=== PATIENT | female | born 1945 | race Caucasian/White ===

== ENCOUNTER → 2016-09-12 | Outpatient (CLI) | payer OTHER, MEDICARE ==
[~2016-09-12] MED LIST: ADULT LOW DOSE81 MG OR; ALEVE220 MG PO; APAP650 OR; ASPIR 8181 MG PO; ASPIRIN325 PO; DIOVAN HCT 1601 EAC1 PO; EFFIENT10 MG PO; GLUCOPHAGE XR500 MG OR; HYDROCODONE-AP1 EAC6 PO; JANUMET 50-5001 EACH PO; LIPITOR10 MG PO; MICARDIS HCT 81 EAC1 OR; NORVASC10 MG OR; REVIEWED; ROBAXIN 750 MG750 M1 PO; ROBAXIN 750 MG750 MG PO; TOPROL XL50 MG PO
== END ==
LOC: RAD 01:02
DX: Z12.31 Encounter for screening mammogram for malignant neoplasm of breast (principal)

== ENCOUNTER → 2016-12-05 | Outpatient (CLI) | payer OTHER, MEDICARE ==
[~2016-12-05] VITALS: Ht 157.5 cm; Wt 58.5 kg
[~2016-12-05] MED LIST changes: +CENTRUM SILVER1 EAC4 PO; +JANUVIA100 MG PO; +PANTOPRAZOLE SO40 M1 PO
--- NOTE | ~2016-12-05 | P ---
[facility] [place] [address] PROCEDURE REPORT Name: MARIO JAMISON Room #: REG [facility]#: [id number] Admission: 12/05/16 Attend Phys: Morris Butt MD Discharge: Date of : 45 Report #: [id number] THIS REPORT FOR: //name// CC: Morris Kimbrough DATE OF SERVICE: 12/05/2016 BRIEF HISTORY: The patient is a 71-year-old woman for average risk screening colonoscopy. PREOPERATIVE DIAGNOSIS: Average risk screening colonoscopy. POSTOPERATIVE DIAGNOSES: 1. Diminutive polyp at 70 cm. 2. Moderate sigmoid diverticulosis coli. MEDICATIONS: Deep sedation with propofol per anesthesia. SPECIMEN: Polyp from 70 cm. ESTIMATED BLOOD LOSS: 3 mL. PROCEDURE: Colonoscopy to cecum and terminal ileum with biopsy. FINDINGS: Prior to propofol sedation, procedure of colonoscopy discussed with the patient as well as potential risks and its complications. She indicates she understands and desires to proceed. DESCRIPTION OF PROCEDURE: With the patient in left lateral decubitus position, digital examination was completed which revealed no abnormalities. Subsequently, the Uberpong video colonoscope was introduced into the rectum, advanced under direct vision to the cecum. Done with minimal difficulty. The cecum was identified by the ileocecal valve and appendiceal orifice. I was able to visualize the distal segment of terminal ileum, which was unremarkable. At that point, the scope was slowly withdrawn and careful circumferential views obtained including retroflexing the scope in the ascending colon. Upon slow withdrawal of the scope, the prep was noted to be excellent. Mucosa normal limits, normal vascular pattern, normal light reflex. As we withdrew the scope, no abnormalities were noted until we reached the proximal descending colon and at 70 cm, a diminutive polyp seen and removed by biopsy. Scope was further withdrawn and no additional polyps were seen. The mucosa throughout the remainder of the colon was normal. However, in the sigmoid colon, there was moderate sigmoid diverticular disease without endoscopic evidence of diverticulitis. Scope was withdrawn in the rectum and small hemorrhoid was [facility] [address] [place] [address] PROCEDURE REPORT Name: MARIO JAMISON Room #: REG [facility].#: [id number] Admission: 12/05/16 Attend Phys: Morris Butt MD Discharge: Date of : 45 Report #: [id number] seen. Scope was withdrawn. The patient tolerated the procedure well. CONDITION OF THE PATIENT UPON DISCHARGE: Following procedure, the patient drowsy, aroused, conversant and will be discharged home when fully ambulatory. INSTRUCTIONS TO THE PATIENT AND FAMILY AT THE TIME OF DISCHARGE: We will follow up on the path and the polyp. If this is an adenoma, she is to return in 5 years; if not, then 10 years would be indicated. Suggest high fiber diet for diverticular disease. Last colonoscopy was 10 years ago. Withdrawal time from the cecum was 15 minutes. <ELECTRONICALLY SIGNED> By: Morris Butt MD 12/05/16 1534 1139 1415 Morris Butt MD /nt
--- NOTE | ~2016-12-05 | S ---
[facility] [place] [address] SURGICAL PATH RPT PROCEDURE Name: QUINCY ZAVALA Room #: REG [facility].#: [id number] Admission: 12/05/16 Date of : 45 Discharge: Report #: [id number] Path Case #: [id number] PATHOLOGY REPORT COLLECTION DATE: 12/05/2016 RECEIVED DATE: 12/05/2016 SUBMITTING PHYS: Dr. Morris Butt OTHER PHYS: Dr. Angela Kimbrough SPECIMEN(S) RECEIVED: A.biopsy polyp at 60 cm * * * * * * * * * * * * FINAL DIAGNOSIS: Polyp, at 60 cm, endoscopic biopsy: - Tubular adenoma. - Negative for high grade dysplasia. PATHOLOGIST: Yuridia Kolb M.D. REPORT ELECTRONICALLY SIGNED BY: Yuridia Kolb M.D. DATE/TIME: 12/08/2016 17:10 * * * * * * * * * * * * GROSS PATHOLOGY: Received in formalin labeled "Quincy Zavala, polyp at 60 cm," is a segment of anton soft tissue measuring 0.4 cm in maximum dimension. The specimen is submitted entirely in cassette A1. (KAH; 12/06/2016) CLINICAL HISTORY: Pre-op diagnosis: Routine screening Post-op diagnosis: Polyps, diverticulosis INITIAL CPT CODE(S): A; 16411 Professional services performed by [facility] at [facility] [address] [place] [address] Technical services performed by [facility] at [address] [place] [address]., [address], [place] [address]. [facility] [address] [place] [address] SURGICAL PATH RPT PROCEDURE Name: QUINCY ZAVALA Room #: REG [facility]#: [id number] Admission: 12/05/16 Date of : 45 Discharge: Report #: [id number] Path Case #: [id number] [address] PHONE: [phone] DIRECTOR: Bridger Paiz M.D. * * * END OF REPORT * * *
== END | disposition home or self-care (01) ==
LOC: GI 08:56
DX: Z12.11 Encounter for screening for malignant neoplasm of colon (principal); D12.4 Benign neoplasm of descending colon; K57.30 Diverticulosis of large intestine without perforation or abscess without bleeding; K64.9 Unspecified hemorrhoids; I10 Essential (primary) hypertension; E11.9 Type 2 diabetes mellitus without complications; E78.5 Hyperlipidemia, unspecified; Z95.1 Presence of aortocoronary bypass graft; Z98.890 Other specified postprocedural states; Z87.891 Personal history of nicotine dependence; K21.9 Gastro-esophageal reflux disease without esophagitis; Z90.49 Acquired absence of other specified parts of digestive tract
CPT/HCPCS: 62110; 62900

== ENCOUNTER 2017-08-24 05:27 | Inpatient (IN) | payer OTHER, MEDICARE ==
[2017-08-10 13:02] LABS: PROTIME 10.5 Seconds (9.3-11.4)
[~2017-08-24] VITALS: Ht 157.5 cm; Wt 61.2 kg
--- NOTE | ~2017-08-24 | O ---
[facility] [place] [address] OPERATIVE REPORT Name: MARIO JAMISON Room #: 411-P [facility].#: [id number] Admission: 08/24/17 Attend Phys: Duke Tariq MD Discharge: 08/25/17 Date of : 45 Report #: [id number] THIS REPORT FOR: //name// CC: Angela Kimbrough Duke Tariq DATE OF SERVICE: 08/24/2017 PREOPERATIVE DIAGNOSIS: Left knee valgus osteoarthritis. POSTOPERATIVE DIAGNOSIS: Left knee valgus osteoarthritis. PROCEDURE: Left total knee arthroplasty. SURGEON: Duke Tariq MD ANVIL WORKER: Citlalli Sinha PA-C INDICATIONS FOR ANVIL WORKER: Throughout the case, extensive retraction and manipulation of the knee was required. This was afforded to me by my ob gyn physician assistant. ANESTHESIA: LMA with an adductor canal block. IMPLANTS: [employer]ada [employer] Nephew size 4 Legion cobalt chrome posterior stabilized femur, size 2 tibia, size 10 polyethylene and size 32 patella. TOURNIQUET TIME: 60 minutes. ESTIMATED BLOOD LOSS: 25 mL. COMPLICATIONS: None. SPECIMENS: None. CONDITION UPON LEAVING THE OR: Stable. INDICATION FOR PROCEDURE: The patient is a 72-year-old female with left knee valgus osteoarthritis. She had failed conservative treatment for this and after discussion with her, she elected for left total knee arthroplasty. DESCRIPTION OF PROCEDURE: Risks, benefits, alternatives, complications were discussed in detail with the patient including but not limited to risk of anesthesia, risk of damage to nerves, arteries, blood vessels, risk for infection, bleeding, risk for continued knee pain, need for reoperation. Informed consent was obtained from the patient. Left knee was appropriately marked in the preoperative holding area. IV Ancef was given for preoperative [facility] [address] [place] [address] OPERATIVE REPORT Name: MARIO JAMISON LASHONDA Room #: 411-P [facility] .R.#: [id number] Admission: 08/24/17 Attend Phys: Duke Tariq MD Discharge: 08/25/17 Date of : 45 Report #: [id number] antibiotics. Adductor canal block was placed by Anesthesia. She was brought to the operating room and placed in supine position on operating room table. LMA anesthesia was induced without complication. Tourniquet was placed on left thigh. Left lower extremity was prepped and draped in normal sterile fashion. A timeout was performed properly identifying the patient and procedure as well as instrumentation. All in the operating room were in agreement. Left lower extremity was exsanguinated, tourniquet was inflated. Tourniquet time was 60 minutes. Standard midline approach of knee was made with 10 blade through the skin. Dissection was taken down sharply to the fascia and deep flaps were developed medially and laterally. Fresh 10 blade was used to make a medial parapatellar arthrotomy and there was noted to be valgus osteoarthritic change, particularly of the lateral compartment. It was decided to proceed with total knee arthroplasty. Patella was everted, knee was flexed. ACL and PCL were removed sharply. Fat pad was removed from the patella. Drill was used to gain access to the canal of the femur and distal femoral cutting block was pinned in place. Distal femoral cut was made and the femur was sized, found to be a size 4. The size 4, 4-in-1 cutting block was placed. Anterior, posterior and chamfer cuts were made. After this, the knee was flexed. Tibia was subluxated and remainder of the menisci removed with Bovie cautery. The drill was used to gain access to the canal of the tibia and tibial resection was placed off the medial plateau. Tibial resection was made. Posterior osteophytes were removed from the femur. Flexion and extension gaps were checked and found to have good balance in flexion and extension both medially and laterally. Tibia was sized, found to be a size 2. A size 2 tibial trial was placed and the fin punch was used. A size 4 femoral trial was placed, box cut was made and the post was placed. This was then trialed with a size 9 and then a size 10 polyethylene. Size 10 polyethylene had a better fit. A 9 mm was taken off the posterior surface of the patella and a size 32 patellar trial button was placed. Knee was taken through range of motion, found to be stable, found to have good balance in flexion and extension both medially and laterally. Trial components were removed. Bony ends were thoroughly irrigated in normal saline. A final size 2 tibia, size 4 Legion cobalt chrome posterior stabilized femur and a size 32 patella were cemented in place using standard cementation techniques. While the cement cured, a periarticular injection consisting of morphine, ropivacaine, epinephrine and Toradol was placed around the knee joint. After the cement cured, tourniquet was deflated. Knee was thoroughly irrigated. Hemostasis was obtained with Bovie cautery. Final size 10 polyethylene was placed. A gram of vancomycin was placed in the joint. The fascia was closed with 0 Vicryl, skin was closed with 2-0 Vicryl, 3-0 Monocryl. Dermabond and CHRISTOPH dressing was applied. The patient tolerated this procedure well and went to the recovery room under the care of anesthesia postoperatively. <ELECTRONICALLY SIGNED> By: Duke Tariq MD 08/26/17 1448 1427 1531 Duke Tariq MD /sydnie
[~2017-08-24 05:27] MED LIST changes: +ATORVASTATIN CA40 MG PO; +MUCINEX600 MG PO; +TRAMADOL 50 MG50 MG PO; +TYLENOL EXTRA500 MG PO; +ZYRTEC10 M4 PO
[2017-08-24 11:26] VITALS: BP 132/63
[2017-08-24 20:30] VITALS: BP 148/68
[2017-08-24 20:45] VITALS: BP 132/62
[2017-08-24 21:00] VITALS: BP 158/76
[2017-08-24 21:15] VITALS: BP 140/69
[2017-08-25 00:29] VITALS: BP 113/52
[2017-08-25 04:00] VITALS: BP 117/44
[2017-08-25 06:48] LABS: HEMATOCRIT 34.1 % (37.0-47.0); HEMOGLOBIN 11.6 gm/dL (12.0-15.0); MCH 32.6 pg (26.0-34.0); MCHC 34.2 g/dL (28.0-37.0); MCV 95.4 fL (80.0-100.0); RBC 3.57 mil/uL (4.20-5.00); RDW 13.9 % (10.5-14.5); WBC 8.2 thou/uL (4.0-11.0)
[2017-08-25 07:45] VITALS: BP 120/65
[2017-08-25 13:32] VITALS: BP 120/65
== END 2017-08-25 14:40 | disposition home or self-care (01) | DRG 470 ==
LOC: TBA 05:27 → 4N 05:27 → PRE 05:31 → 4N 20:16 → ENTRNSPT 08-25 14:32 → EDTRNSPTSTS 08-25 14:35 → 4N 08-25 14:40
PROVIDERS: Orthopaedic Surgery
PROC: 0SRD0J9 Replacement of Left Knee Joint with Synthetic Substitute, Cemented, Open Approach (ICD-10-PCS; principal; 2017-08-24)
DX: M17.12 Unilateral primary osteoarthritis, left knee (principal); E11.9 Type 2 diabetes mellitus without complications; I10 Essential (primary) hypertension; E78.5 Hyperlipidemia, unspecified; K21.9 Gastro-esophageal reflux disease without esophagitis; Z79.82 Long term (current) use of aspirin; Z95.5 Presence of coronary angioplasty implant and graft; Z90.49 Acquired absence of other specified parts of digestive tract; Z79.899 Other long term (current) drug therapy; Z80.3 Family history of malignant neoplasm of breast; Z82.49 Family history of ischemic heart disease and other diseases of the circulatory system; Z87.891 Personal history of nicotine dependence
CPT/HCPCS: 10790; 50010; 50101; 50415; 50954; 51130; 51225; 51771; 53000; 53078; 53364; 54118; 56527; 56528; 57095; 62110; 62900; 64043

== ENCOUNTER → 2017-10-16 | Outpatient (CLI) | payer OTHER, MEDICARE | LOC: RAD 01:47 | DX: Z12.31 Encounter for screening mammogram for malignant neoplasm of breast (principal) ==

== ENCOUNTER → 2019-07-04 | Outpatient (CLI) | payer OTHER, MEDICARE | LOC: MRI 12:03 → CAT 15:29 → MRI 15:46 | DX: R90.82 White matter disease, unspecified (principal); H90.3 Sensorineural hearing loss, bilateral ==

== ENCOUNTER → 2019-10-05 | Outpatient (CLI) | payer OTHER, MEDICARE | LOC: SJCVC 13:23 | DX: I25.10 Atherosclerotic heart disease of native coronary artery without angina pectoris (principal); I10 Essential (primary) hypertension; E78.5 Hyperlipidemia, unspecified; E11.9 Type 2 diabetes mellitus without complications ==

== ENCOUNTER → 2019-12-09 | Outpatient (CLI) | payer OTHER, MEDICARE | LOC: BC 09:13 | PROVIDERS: ATTEND Family Medicine | DX: Z12.31 Encounter for screening mammogram for malignant neoplasm of breast (principal) ==

== ENCOUNTER → 2020-04-05 | Outpatient (CLI) | payer OTHER, MEDICARE | LOC: SJCVC 09:51 | PROVIDERS: ATTEND Internal Medicine | DX: I25.10 Atherosclerotic heart disease of native coronary artery without angina pectoris (principal); I10 Essential (primary) hypertension; E78.5 Hyperlipidemia, unspecified; I65.23 Occlusion and stenosis of bilateral carotid arteries; E11.9 Type 2 diabetes mellitus without complications; Z79.899 Other long term (current) drug therapy ==

== ENCOUNTER → 2020-04-13 | Outpatient (CLI) | payer OTHER, MEDICARE | LOC: CAT 13:44 | PROVIDERS: ATTEND Internal Medicine | DX: Z12.2 Encounter for screening for malignant neoplasm of respiratory organs (principal); I25.10 Atherosclerotic heart disease of native coronary artery without angina pectoris; K76.0 Fatty (change of) liver, not elsewhere classified; R91.8 Other nonspecific abnormal finding of lung field; Z87.891 Personal history of nicotine dependence ==

== ENCOUNTER → 2020-10-05 | Outpatient (CLI) | payer OTHER, MEDICARE | LOC: SJCVCIMAG 07:27 | PROVIDERS: ATTEND Internal Medicine | DX: I65.23 Occlusion and stenosis of bilateral carotid arteries (principal); R00.0 Tachycardia, unspecified; I25.10 Atherosclerotic heart disease of native coronary artery without angina pectoris; I10 Essential (primary) hypertension; E78.5 Hyperlipidemia, unspecified; E11.9 Type 2 diabetes mellitus without complications; E78.00 Pure hypercholesterolemia, unspecified; Z90.49 Acquired absence of other specified parts of digestive tract; Z98.890 Other specified postprocedural states; Z88.8 Allergy status to other drugs, medicaments and biological substances; Z79.82 Long term (current) use of aspirin; Z79.899 Other long term (current) drug therapy; Z87.891 Personal history of nicotine dependence; Z82.49 Family history of ischemic heart disease and other diseases of the circulatory system ==

== ENCOUNTER → 2020-12-10 | Outpatient (CLI) | payer OTHER, MEDICARE | LOC: BC 10:17 | PROVIDERS: ATTEND Family Medicine | DX: Z12.31 Encounter for screening mammogram for malignant neoplasm of breast (principal) ==

== ENCOUNTER → 2021-04-01 | Outpatient (CLI) | payer OTHER, MEDICARE | LOC: SJCVC 13:52 | PROVIDERS: ATTEND Internal Medicine | DX: I25.10 Atherosclerotic heart disease of native coronary artery without angina pectoris (principal); I10 Essential (primary) hypertension; I65.23 Occlusion and stenosis of bilateral carotid arteries; E78.5 Hyperlipidemia, unspecified; E11.40 Type 2 diabetes mellitus with diabetic neuropathy, unspecified; E78.00 Pure hypercholesterolemia, unspecified; Z88.8 Allergy status to other drugs, medicaments and biological substances; Z79.82 Long term (current) use of aspirin; Z79.899 Other long term (current) drug therapy; Z87.891 Personal history of nicotine dependence ==

== ENCOUNTER → 2021-04-17 | Outpatient (CLI) | payer OTHER, MEDICARE | LOC: CAT 10:43 | PROVIDERS: ATTEND Internal Medicine | DX: Z12.2 Encounter for screening for malignant neoplasm of respiratory organs (principal); Z87.891 Personal history of nicotine dependence ==